=== PATIENT | female | born 1930 | race Hispanic/Latino ===

== ENCOUNTER 2017-09-18 11:54 | Emergency (ER) | payer MEDICARE ==
[2017-09-18 12:09] VITALS: RESP 18; TEMP 97.9; O2SAT 97; BMI 21.9
--- NOTE | 2017-09-18 12:47 | ED PDOC ---
Arrival/HPI - General Chief Complaint: Abnormal Skin Integrity Time Seen by Provider: 09/18/17 12:22 Historian: Patient - History of Present Illness Narrative History of Present Illness (Text): 09/18/17 12:25 Genoveva White is an 87 year old female sent in from a fdc who presents to the emergency department for evaluation today. Patient was diagnosed with MRSA on 09/03/17 to left lateral malleolus and was started on oral medications. However, the oral medications caused the patient to experience nausea and vomiting. Patient states that she stopped taking her medications and her abdomen felt better. Patient's fdc sent her here for evaluation. Patient has no further complaints at this time. Patient endorses that she has never smoked before and does not drink. Symptom Course: Unchanged Activities at Onset: Rest Context: Home Past Medical History - Provider Review Nursing Documentation Reviewed: Yes - Infectious Disease Hx of Infectious Diseases: None - Tetanus Immunization Tetanus Immunization: Unknown - Reproductive Menopause: Yes - Cardiac Hx Hypertension: Yes - Pulmonary Hx Chronic Obstructive Pulmonary Disease (COPD): Yes - Musculoskeletal/Rheumatological Hx Arthritis: Yes Hx Osteoporosis: Yes - Psychiatric Hx Depression: Yes Hx Substance Use: No - Suicidal Assessment Feels Threatened In Home Enviroment: No Family/Social History - Physician Review Nursing Documentation Reviewed: Yes Family/Social History: Unknown Family HX Smoking Status: Never Smoked Hx Alcohol Use: No Hx Substance Use: No Allergies/Home Meds Allergies/Adverse Reactions: Allergies amoxicillin Allergy (Verified 09/18/17 12:14) RASH clarithromycin Allergy (Verified 09/18/17 12:14) RASH codeine Allergy (Verified 09/18/17 12:14) RASH Review of Systems - Physician Review All systems were reviewed & negative as marked: Yes - Review of Systems Constitutional: absent: Fevers, Night Sweats Eyes: absent: Vision Changes ENT: absent: Hearing Changes Respiratory: absent: SOB, Cough Cardiovascular: absent: Chest Pain Gastrointestinal: absent: Abdominal Pain Genitourinary Female: absent: Dysuria, Frequency Musculoskeletal: absent: Arthralgias, Back Pain Skin: absent: Rash, Pruritis Neurological: absent: Headache Endocrine: absent: Diaphoresis Hemo/Lymphatic: absent: Adenopathy Psychiatric: absent: Anxiety, Depression Physical Exam Vital Signs Reviewed: Yes Vital Signs Temp Pulse Resp BP Pulse Ox 09/18/17 15:33 71 18 115/71 97 09/18/17 12:08 97.9 F 76 18 113/79 97 Temperature: Afebrile Blood Pressure: Normal Pulse: Regular Respiratory Rate: Normal - Systems Exam Head: Present: Atraumatic, Normocephalic Pupils: Present: PERRL Extroacular Muscles: Present: EOMI Conjunctiva: Present: Normal Mouth: Present: Moist Mucous Membranes Neck: Present: Normal Range of Motion Respiratory/Chest: Present: Clear to Auscultation, Good Air Exchange. No: Respiratory Distress, Accessory Muscle Use Cardiovascular: Present: Regular Rate and Rhythm, Normal S1, S2. No: Murmurs Abdomen: Present: Normal Bowel Sounds. No: Tenderness, Distention, Peritoneal Signs Back: Present: Normal Inspection Upper Extremity: Present: Normal Inspection. No: Cyanosis, Edema Lower Extremity: Present: Normal Inspection. No: Edema Neurological: Present: GCS=15, CN II-XII Intact, Speech Normal Skin: Present: Other (1cm ulcer to left lateral malleolus with drainage; no erythema; minimal tenderness; no warmth) Psychiatric: Present: Alert, Oriented x 3, Normal Insight, Normal Concentration Medical Decision Making ED Course and Treatment: 09/18/17 12:50 Impression: 87 year old female sent in from a fdc who presents to the emergency department for evaluation today. Patient was diagnosed with MRSA on 09/03/17 to left lateral malleolus. Plan: -- Labs -- Reassess and disposition Progress Notes: 09/18/17 14:37 Patient was on Zyvox but reports that it gave her an upset stomach so she decided not to take it. Discussed in detail with Dr. Boothe. Patient will be discharged back to the fdc on Bactrim. Follow-up in the ER as needed. Work up is unrevealing. - Lab Interpretations Lab Results: 09/18/17 13:57 09/18/17 13:57 Lab Results 09/18/17 13:57: Sodium 138, Potassium 4.5, Chloride 97 L, Carbon Dioxide 31, Anion Gap 14, BUN 39 H, Creatinine 1.2, Est GFR ( Amer) 52, Est GFR (Non- Af Amer) 43, Random Glucose 109, Calcium 10.1, Total Bilirubin 0.5, AST 29, ALT 25, Alkaline Phosphatase 83, Total Protein 8.0, Albumin 3.8, Globulin 4.2, Albumin/Globulin Ratio 0.9 L, Lipase 87 09/18/17 13:57: WBC 9.6, RBC 4.14, Hgb 13.0, Hct 39.4, MCV 95.2, MCH 31.4, MCHC 33.0, RDW 14.1, Plt Count 235, MPV 9.8, Gran % 68.0, Lymph % (Auto) 20.4 L, [place] % (Auto) 7.5 H, Eos % (Auto) 3.9, Baso % (Auto) 0.2, Gran # 6.54 H, Lymph # 2.0, [place] # 0.7 H, Eos # 0.4, Baso # 0.02 I have reviewed the lab results: Yes - Medication Orders Current Medication Orders: Discontinued Medications Tramadol HCl (Ultram) 50 mg PO STAT STA Stop: 09/18/17 15:25 - Scribe Statement The provider has reviewed the documentation as recorded by the Geoff Calderon Provider Scribe Attestation: All medical record entries made by the Jefersonibkirill were at my direction and personally dictated by me. I have reviewed the chart and agree that the record accurately reflects my personal performance of the history, physical exam, medical decision making, and the department course for this patient. I have also personally directed, reviewed, and agree with the discharge instructions and disposition. Disposition/Present on Arrival - Present on Arrival Any Indicators Present on Arrival: No History of DVT/PE: No History of Uncontrolled Diabetes: No Urinary Catheter: No History of Decub. Ulcer: No History Surgical Site Infection Following: None - Disposition Have Diagnosis and Disposition been Completed?: Yes Diagnosis: MRSA (methicillin resistant Staphylococcus aureus) infection, Ankle ulcer Disposition: HOME/ ROUTINE Disposition Time: 14:45 Patient Plan: Discharge Patient Problems: Current Active Problems Problem Status Onset Ankle ulcer Acute MRSA (methicillin resistant Staphylococcus aureus) infection Acute Condition: GOOD Discharge Instructions (ExitCare): MRSA (Methicillin Resistant Staphylococcus Aureus) (ED) Prescriptions: Sulfamethoxazole/Trimethoprim [Bactrim DS 800 mg-160 mg] 1 tab PO BID #20 tab Referrals: Eliseo Boothe DO [Primary Care Provider] - Follow up with primary Forms: [employer] (Albanian)
[2017-09-18 14:08] LABS: BASO # 0.02 K/mm3 (0.0-2.0); BASO % 0.2 % (0.0-3.0); EOS # 0.4 (0.0-0.7); EOS % 3.9 % (1.5-5.0); GRAN # 6.54 (1.4-6.5); LYMPH % 20.4 % (22.0-35.0); MEAN CELL VOLUME 95.2 fl (80.0-105.0); MEAN CORPUSCULAR HEMOGLOBIN 31.4 pg (25.0-35.0); MEAN PLATELET VOLUME 9.8 fl (7.0-11.0); MONO # 0.7 (0.1-0.6); MONO % 7.5 % (1.0-6.0); RBC 4.14 10^6/uL (3.5-6.1); RED CELL DISTRIBUTION WIDTH 14.1 % (11.5-14.5); WHITE BLOOD COUNT 9.6 10^3/ul (4.5-11.0)
[2017-09-18 14:17] LABS: ALB/GLOB RATIO 0.9 (1.1-1.8); ALBUMIN 3.8 g/dL (3.0-4.8); CALCIUM 10.1 mg/dL (8.4-10.5)
[2017-09-18 15:33] VITALS: BP 115/71; PULSE 71
== END 2017-09-18 16:37 | disposition home or self-care (01) ==
LOC: ED 11:54
DX: A49.02 Methicillin resistant Staphylococcus aureus infection, unspecified site (principal); L97.329 Non-pressure chronic ulcer of left ankle with unspecified severity

== ENCOUNTER 2017-09-27 14:49 | Observation (INO) | payer MEDICARE ==
[2017-09-27 15:03] VITALS: BMI 21.4
[2017-09-27] MEDS ORDERED: Iohexol 240 (50 ml) ONE (15:35)
[2017-09-27] MEDS: Sodium Chloride 0.9% 1,000 ML IV STA ×2 (15:41→19:14)
[2017-09-27 15:57] LABS: BASO # 0.01 K/mm3 (0.0-2.0); BASO % 0.2 % (0.0-3.0); EOS # 0.1 (0.0-0.7); EOS % 1.1 % (1.5-5.0); GRAN # 3.65 (1.4-6.5); GRAN % 64.2 % (50.0-68.0); HEMOGLOBIN 12.2 g/dL (12.0-16.0); LYMPH # 1.5 (1.2-3.4); LYMPH % 26.6 % (22.0-35.0); MEAN CELL VOLUME 95.4 fl (80.0-105.0); MEAN CORPUSCULAR HEMOGLOBIN 31.1 pg (25.0-35.0); MEAN CORPUSCULAR HGB CONC 32.6 g/dl (31.0-37.0); MEAN PLATELET VOLUME 10.6 fl (7.0-11.0); MONO # 0.5 (0.1-0.6); MONO % 7.9 % (1.0-6.0); RBC 3.92 10^6/uL (3.5-6.1); RED CELL DISTRIBUTION WIDTH 15.3 % (11.5-14.5); WHITE BLOOD COUNT 5.7 10^3/ul (4.5-11.0)
[2017-09-27] MEDS ORDERED: Iohexol 350 MG/100 ML VIAL ONE (17:29)
[2017-09-27 18:16] LABS: ALBUMIN 3.7 g/dL (3.0-4.8); CALCIUM 10.8 mg/dL (8.4-10.5)
[2017-09-27 18:43] LABS: URINE BILIRUBIN NEGATIVE (NEGATIVE); URINE BLOOD MODERATE (NEGATIVE); URINE GLUCOSE (UA) NEGATIVE (NEGATIVE); URINE LEUKOCYTE ESTERASE MODERATE Leu/uL (NEGATIVE); URINE NITRATE NEGATIVE (NEGATIVE); URINE PROTEIN TRACE mg/dL (<30 mg/dL); URINE UROBILINOGEN 0.2 E.U./dL (<1 E.U./dL)
[2017-09-27 18:47] LABS: URINE APPEARANCE SL CLOUDY (CLEAR); URINE COLOR YELLOW (YELLOW)
[2017-09-27] MEDS ORDERED: Sodium Chloride 0.9% 1,000 ML IV SCH (19:00)
--- NOTE | 2017-09-27 19:20 | ED PDOC ---
Arrival/HPI - General Chief Complaint: GI Problem Time Seen by Provider: 09/27/17 15:31 Historian: Patient - History of Present Illness Narrative History of Present Illness (Text): 09/27/17 15:28 A 87 year old female, whose past medical history includes hypertension, COPD, and osteoporosis, presents to the emergency department complaining of nausea, vomiting, and watery non-bloody diarrhea for 4 days. Patient reports over past 1 or 2 days, whenever she eats she vomits it back out. Starting 6 days ago patient has been taking Bactrum for healed ulcer. Patient denies any fever, or any other complaints. Denies any recent travel or any sick contacts. No PMD Past Medical History - Provider Review Nursing Documentation Reviewed: Yes - Infectious Disease Hx of Infectious Diseases: None - Tetanus Immunization Tetanus Immunization: Unknown - Reproductive Menopause: Yes - Cardiac Hx Hypertension: Yes - Pulmonary Hx Chronic Obstructive Pulmonary Disease (COPD): Yes - Musculoskeletal/Rheumatological Hx Arthritis: Yes Hx Osteoporosis: Yes Other/Comment: mrsa to L foot - Psychiatric Hx Depression: Yes Hx Substance Use: No - Anesthesia Hx Anesthesia Reactions: No Hx Malignant Hyperthermia: No - Suicidal Assessment Feels Threatened In Home Enviroment: No Family/Social History - Physician Review Nursing Documentation Reviewed: Yes Family/Social History: No Known Family HX Smoking Status: Never Smoked Hx Alcohol Use: No Hx Substance Use: No Allergies/Home Meds Allergies/Adverse Reactions: Allergies amoxicillin Allergy (Verified 09/18/17 12:14) RASH clarithromycin Allergy (Verified 09/18/17 12:14) RASH codeine Allergy (Verified 09/18/17 12:14) RASH Home Medications: Home Meds Medication Instructions Recorded Confirmed Carvedilol [Coreg] 25 mg PO BID 09/27/17 09/27/17 Celecoxib [Celebrex] 200 mg PO DAILY 09/27/17 09/27/17 Esomeprazole Magnesium [Nexium] 40 mg PO BID 09/27/17 09/27/17 Fexofenadine HCl [Aller-Fex] 180 mg PO DAILY 09/27/17 09/27/17 Fluticasone Propionate [Flovent 50 mcg TOP DAILY 09/27/17 09/27/17 Diskus] LORazepam [Ativan] 0.5 mg PO BID 09/27/17 09/27/17 amLODIPine [Norvasc] 5 mg PO DAILY 09/27/17 09/27/17 Review of Systems - Physician Review All systems were reviewed & negative as marked: Yes - Review of Systems Constitutional: absent: Fevers Gastrointestinal: Diarrhea (watery and non-bloody), Nausea, Vomiting (vomits back out whatever patient eats) Physical Exam Vital Signs Reviewed: Yes Vital Signs Temp Pulse Resp BP Pulse Ox 09/27/17 18:00 88 18 136/69 96 09/27/17 14:50 97.8 F 96 H 18 128/81 94 L Temperature: Afebrile Blood Pressure: Normal Pulse: Regular Respiratory Rate: Normal Appearance: Positive for: Well-Appearing Pain Distress: None Mental Status: Positive for: Alert and Oriented X 3 - Systems Exam Mouth: Present: Dry Respiratory/Chest: Present: Clear to Auscultation, Good Air Exchange. No: Respiratory Distress, Accessory Muscle Use Cardiovascular: Present: Murmurs (systolic) Abdomen: Present: Normal Bowel Sounds. No: Tenderness, Distention, Peritoneal Signs Lower Extremity: Present: Other (healing left ankle ulcer) Medical Decision Making ED Course and Treatment: 09/27/17 15:31 Impression: 87 year old female with nausea, vomiting, and diarrhea. Physical exam shows mucous membranes dry; systolic murmur; and healing left ankle ulcer. Plan: -- Abd/Pelvis CT -- Labs -- Urine Culture -- Urinalysis -- Zofran -- IV Fluids -- Reassess and disposition Prior Visits: Notes and results from previous visits were reviewed. Patient was last seen in the emergency department on 09/18/2017 for evaluation after being diagnosed with MRSA on 09/03/2017 to left lateral malleolus. Patient was d/c home. Progress Notes: 09/27/2017 20:04 Abd/Pelvis CT FINDINGS: Artifacts: Streak artifact degrades image quality. Lower thorax: Heart is normal. There is a very small pericardial effusion. There are coronary artery calcifications. There is a small hiatal hernia. There is atelectasias and scarring at the lung bases. There is nodular pleural thickening at the lung bases. ABDOMEN: Liver: There is small calcification in the liver. Gallbladder and bile ducts: Gallbladder is absent. Common duct is dilated. Pancreas: Pancreas is atrophic. Spleen: Unremarkable. Adrenals: Unremarkable Kidneys and ureters: There are bilateral renal cysts. There is right renal scarring. There is a tiny non-obstructing left renal stone. Kidneys appear mildly atrophic. There is no pelvocaliectasis or erteractasis. Stomach and bowel: Stomach is empty. Rotation is normal. Proximal small bowel is mildly distendered with fluid and air. There is contrast in the distal small bowel. There is no small bowel obstruction. Illececal region is unremarkable. Appendix and terminal ileum are unremarkable. Colon is incompletely distended which limits evaluation. There is diverticulosis. Appendix: See stomach and bowel. PELVIS: Bladder: Bladder is partially distended. Reproductive: Uterus and adnexal structures are unremarkable. There is a pessary. ABDOMEN AND PELVIS: Intraperitoneal space: There is no free air or free fluid. Bones/joints: There are old healed rib fractures. Bony structures are osteopenic with degenerative change. There is a convex right lumbar curve. There is compression fracture at T-12. Soft tissues: There is a small lipoma in the soft tissues at the left hip. There is a very small fat containing umbilical hernia. Vasculature: There are vascular calcifications. Aorta is mildly ectatic. Lymph nodes: is shotty adenopathy. IMPRESSION: Dilated common duct status post cholecystectomy; no acute solid visceral abdnormality; possible mild ileus, no obstruction; no CT findings of appendicitis or diverticulitis. Additional nonemergent findings as described above. Dictator: Valerie Najera MD - Lab Interpretations Lab Results: 09/27/17 15:30 09/27/17 15:30 Lab Results 09/27/17 18:20: Urine Color Yellow, Urine Appearance Sl cloudy, Urine pH 6.0, Ur Specific [place] 1.025, Urine Protein Trace H, Urine Glucose (UA) Negative, Urine Ketones Negative, Urine Blood Moderate H, Urine Nitrate Negative, Urine Bilirubin Negative, Urine Urobilinogen 0.2, Ur Leukocyte Esterase Moderate H, Urine RBC 2 - 5, Urine WBC 10 - 15, Ur Epithelial Cells 4 - 5, Urine Bacteria Mod 09/27/17 15:30: Sodium 143, Potassium 4.4, Chloride 106, Carbon Dioxide 26, Anion Gap 16, BUN 72 H, Creatinine 2.7 H, Est GFR ( Amer) 20, Est GFR ( Non-Af Amer) 17, Random Glucose 115 H, Calcium 10.8 H, Total Bilirubin 0.5, AST 60 H D, ALT 39, Alkaline Phosphatase 72, Total Protein 7.5, Albumin 3.7, Globulin 3.8, Albumin/Globulin Ratio 1.0 L, Lipase 61 09/27/17 15:30: WBC 5.7 D, RBC 3.92, Hgb 12.2, Hct 37.4, MCV 95.4, MCH 31.1, MCHC 32.6, RDW 15.3 H, Plt Count 199, MPV 10.6, Gran % 64.2, Lymph % (Auto) 26.6 , [place] % (Auto) 7.9 H, Eos % (Auto) 1.1 L, Baso % (Auto) 0.2, Gran # 3.65, Lymph # 1.5, [place] # 0.5, Eos # 0.1, Baso # 0.01 I have reviewed the lab results: Yes - RAD Interpretation Radiology Orders: 09/27/17 18:22 ABD & PELVIS PO CONTRAST ONLY [CT] Stat - Medication Orders Current Medication Orders: Sodium Chloride (Sodium Chloride 0.9%) 1,000 mls @ 100 mls/hr IV .Q10H STA Stop: 09/28/17 01:30 Last Admin: 09/27/17 19:14 Dose: 100 mls/hr eMAR Start Stop Document 09/27/17 19:14 SRE (Rec: 09/27/17 19:14 SRE [id number]) Intravenous Solution Start Date 09/27/17 Start Time 19:14 Sodium Chloride (Sodium Chloride 0.9%) 1,000 mls @ 125 mls/hr IV .Q8H [facility] Last Admin: 09/27/17 19:36 Dose: 125 mls/hr eMAR Start Stop Document 09/27/17 19:36 CNR (Rec: 09/27/17 19:37 CNR [id number] Intravenous Solution Start Date 09/27/17 Start Time 19:37 Sodium Chloride (Sodium Chloride 0.45%) 1,000 mls @ 60 mls/hr IV .[id number] ONE Stop: 09/28/17 13:10 Discontinued Medications Ciprofloxacin (Cipro 400mg/200ml Dsw) 400 mg in 200 mls @ 133.3 mls/hr IVPB STAT STA PRN Reason: Protocol Stop: 09/27/17 22:03 Last Admin: 09/27/17 21:05 Dose: 133.3 mls/hr eMAR Start Stop Document 09/27/17 21:05 CNR (Rec: 09/27/17 21:[address] [facility] [id number]) Intravenous Solution Start Date 09/27/17 Start Time 21:05 Ondansetron HCl (Zofran Inj) 4 mg IVP STAT STA Stop: 09/27/17 16:15 Last Admin: 09/27/17 16:18 Dose: 4 mg IVP Administration Document 09/27/17 16:18 SRE (Rec: 09/27/17 16:18 SRE [id number]) Charges for Administration # of IVP Administrations 1 - Scribe Statement The provider has reviewed the documentation as recorded by the Geoff Mejia Provider Scribe Attestation: All medical record entries made by the Scribe were at my direction and personally dictated by me. I have reviewed the chart and agree that the record accurately reflects my personal performance of the history, physical exam, medical decision making, and the department course for this patient. I have also personally directed, reviewed, and agree with the discharge instructions and disposition. Disposition/Present on Arrival - Present on Arrival Any Indicators Present on Arrival: No History of DVT/PE: No History of Uncontrolled Diabetes: No Urinary Catheter: No History of Decub. Ulcer: No History Surgical Site Infection Following: None - Disposition Have Diagnosis and Disposition been Completed?: Yes Diagnosis: Dehydration, Acute renal failure, UTI (urinary tract infection) Disposition: HOSPITALIZED Disposition Time: 19:00 Condition: STABLE
[2017-09-27 19:34] LABS: URINE BACTERIA MOD (NEG)
--- NOTE | 2017-09-27 20:04 | CT ---
EXAM: CT Abdomen and Pelvis Without Intravenous Contrast EXAM DATE/TIME: 09/27/2017 6:22 PM CLINICAL HISTORY: 87 years old, female; Pain; Abdominal pain; Localized; Lower; Additional info: Diffuse tenderness- multiple vomiting TECHNIQUE: Axial computed tomography images of the abdomen and pelvis without intravenous contrast. All CT scans at this facility use one or more dose reduction techniques, viz.: automated exposure control; ma/kV adjustment per patient size (including targeted exams where dose is matched to indication; i.e. head); or iterative reconstruction technique. Coronal and sagittal reformatted images were created and reviewed. COMPARISON: There are no prior studies for comparison. FINDINGS: Artifacts: Streak artifact degrades image quality. Lower thorax: Heart size is normal. There is a very small pericardial effusion. There are coronary artery calcifications. There is a small hiatal hernia. There is atelectasis and scarring at the lung bases. There is nodular pleural thickening at the lung bases. ABDOMEN: Liver: There is a small calcification in the liver. Gallbladder and bile ducts: Gallbladder is absent. Common duct is dilated. Pancreas: Pancreas is atrophic. Spleen: unremarkable Adrenals: unremarkable Kidneys and ureters: There are bilateral renal cysts. There is right renal scarring. There is a tiny nonobstructing left renal stone. Kidneys appear mildly atrophic.There is no pelvocaliectasis or ureterectasis. Stomach and bowel: Stomach is empty. Rotation is normal. Proximal small bowel is mildly distended with fluid and air. There is contrast in the distal small bowel. There is no small bowel obstruction. Ileocecal region is unremarkable. Appendix and terminal ileum are unremarkable. Colon is incompletely distended which limits evaluation.There is diverticulosis. Appendix: See stomach and bowel PELVIS: Bladder: Bladder is partially distended. Reproductive: Uterus and adnexal structures are unremarkable. There is a pessary. ABDOMEN and PELVIS: Intraperitoneal space: There is no free air or free fluid. Bones/joints: There are old healed rib fractures Bony structures are osteopenic with degenerative change. There is a convex right lumbar curve. There is compression fracture at T12. Soft tissues: There is a small lipoma in the soft tissues at the left hip. There is a very small fat containing umbilical hernia. Vasculature: There are vascular calcifications. Aorta is mildly ectatic Lymph nodes: is shotty adenopathy. IMPRESSION: Dilated common duct status post cholecystectomy; no acute solid visceral abnormality; possible mild ileus, no obstruction; no CT findings of appendicitis or diverticulitis Additional nonemergent findings as described above.
[2017-09-27] MEDS ORDERED: Sodium Chloride 0.45% 1,000 ML IV ONE (20:31)
[2017-09-27] MEDS ORDERED: Ciprofloxacin 400mg/200ml D5W 400 MG/200 ML BAG IVPB STA (20:33)
[2017-09-28 03:05] VITALS: PULSE 87; RESP 20
[2017-09-28 09:02] VITALS: BP 136/85; TEMP 97.8; O2SAT 94
[2017-09-28 09:26] LABS: ALB/GLOB RATIO 0.9 (1.1-1.8); ALBUMIN 3.2 g/dL (3.0-4.8); CALCIUM 9.9 mg/dL (8.4-10.5); MAGNESIUM 1.6 mg/dL (1.7-2.2)
[2017-09-28 09:28] LABS: HEMOGLOBIN 11.4 g/dL (12.0-16.0); MEAN CELL VOLUME 98.4 fl (80.0-105.0); MEAN CORPUSCULAR HGB CONC 31.5 g/dl (31.0-37.0); MEAN PLATELET VOLUME 10.5 fl (7.0-11.0); RBC 3.68 10^6/uL (3.5-6.1); RED CELL DISTRIBUTION WIDTH 15.1 % (11.5-14.5); WHITE BLOOD COUNT 6.8 10^3/ul (4.5-11.0)
[2017-09-28] MEDS ORDERED: Ciprofloxacin 400mg/200ml D5W 400 MG/200 ML BAG IVPB SCH (10:00)
--- NOTE | 2017-09-28 15:11 | CP.PCM.CON ---
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 Hypertension control with meds as ordered. Patient not on ACEI/ARB due to [facility] Monitor Input/Output, daily weights and renal function with basic metabolic panel renal function improved with IVF pt planned for d/c home today. stable from renal perspective with outpt renal follow up in 1-2 weeks supplement electrolytes as needed Dose meds/antibiotics for reduced GFR. Avoid fleets enema/magnesium based laxatives. Avoid nephrotoxins/NSAIDs/ iodinated contrast (unless needed emergently) Glycemic control Further work up/management as per primary team Thanks for allowing me to participate in care of your patient. Will follow patient with you. Please call if any Qs. d/w team Dr John Zimmerman Office: [phone] Chief Complaint; loose stool reason for consult: [facility] HPI: Pt is a 87 F with hx of hypertension (years), COPD presented with complaints of multiple episodes of loose stool over last few days with decreased oral intake. she was taking bactrim for last 1 week for ankle skin infection renal consult for [facility]. she also has baseline ckd with cr 1.2 Denies OTC/herbal meds or NSAIDs No recent iodinated contrast exposure. No obvious episodes of low BP. ROS: Cardiovascular: No chest pain. Pulmonary: No shortness of breath Gastrointestinal: denies abdominal pain No nausea. No vomiting. no diarrhoea now Genitourinary: No pain while urinating. Denies blood in urine. All other negative Physical Examination: General Appearance: Comfortable, in no acute respiratory distress, co-operative . Vitals reviewed and noted as below Head; Atraumatic, normocephalic ENT: no ulcers no thrush. Tongue is midline. Oropharynx: no rash or ulcers. EYES: Pupils are equal, round and reactive to light accommodation. Eye muscles and extraocular movement intact. Sclera is anicteric. Neck; supple no lymphadenopathy, no thyromegaly or bruit Lungs: Normal respiratory rate/effort. Breath sounds bilateral equal and clear Heart: Normal rate. s1s2 normal. No rub or gallop. Extremities: no edema. No varicose veins Neurological: Patient is alert, awake and oriented to person, place and time. No focal deficit. Strength bilateral appropriate and equal Skin: Warm and dry. Normal turgor. No rash. Palpitation: Normal elasticity for age Abdomen: Abdomen is soft. Bowel sounds +. There is no abdominal tenderness, no guarding/rigidity no organomegaly Psych: normal insight and normal affect/mood MSK: no joint tenderness or swelling. Digits and nails normal, no deformity : kidney or bladder not palpable Labs/imaging reviewed. Past medical history, past surgical history, family history, social history, allergy reviewed and noted as below Family hx: no hx of CKD. Rest non-contributory renal: b/l atrophy and cysts Past Patient History - Infectious Disease Hx of Infectious Diseases: None - Tetanus Immunizations Tetanus Immunization: Unknown - Past Social History Smoking Status: Never Smoked - CARDIAC Hx Hypertension: Yes - PULMONARY Hx Chronic Obstructive Pulmonary Disease (COPD): Yes - MUSCULOSKELETAL/RHEUMATOLOGICAL Hx Falls: No - PSYCHIATRIC Hx Depression: Yes Hx Substance Use: No - SURGICAL HISTORY Hx Cholecystectomy: Yes - ANESTHESIA Hx Anesthesia Reactions: No Hx Malignant Hyperthermia: No Meds Home Medications: Home Medication List Medication Instructions Recorded Confirmed Type Ciprofloxacin [Cipro] 500 mg PO Q12 #14 tab 09/28/17 Rx Allergies/Adverse Reactions: Allergies Allergy/AdvReac Type Severity Reaction Status Date / Time amoxicillin Allergy RASH Verified 09/18/17 12:14 clarithromycin Allergy RASH Verified 09/18/17 12:14 codeine Allergy RASH Verified 09/18/17 12:14 Results - Vital Signs Recent Vital Signs: Last Vital Signs Temp 97.8 F 09/28/17 08:00 Pulse 87 09/28/17 10:13 Resp 20 09/28/17 08:00 BP 136/85 09/28/17 10:13 Pulse Ox 94 L 09/28/17 08:00 - Labs Result Diagrams: 09/28/17 08:30 09/28/17 08:55 Labs: Laboratory Results - last 24 hr 09/28/17 09/28/17 08:30 08:55 WBC 6.8 RBC 3.68 Hgb 11.4 L Hct 36.2 MCV 98.4 D MCH 31.0 MCHC 31.5 RDW 15.1 H Plt Count 172 MPV 10.5 Sodium 142 Potassium 3.8 Chloride 109 H Carbon Dioxide 24 Anion Gap 13 BUN 41 H Creatinine 1.4 H Est GFR ( Amer) 43 Est GFR (Non-Af Amer) 36 Random Glucose 84 Calcium 9.9 Magnesium 1.6 L Total Bilirubin 0.8 AST 50 H ALT 39 Alkaline Phosphatase 57 Total Protein 6.7 Albumin 3.2 Globulin 3.5 Albumin/Globulin Ratio 0.9 L
--- NOTE | 2017-09-29 02:46 | DS ---
HISTORY OF PRESENT ILLNESS: She is resting comfortably in bed. She is doing better. No more diarrhea. She is in good spirit. She wants to go back to the PHYSICAL EXAMINATION: VITAL SIGNS: Temperature 97.8, 87 pulse , 136/85 blood pressure, 20 respiratory rate, and 94% O2 sat on room air. HEENT: Head is atraumatic and normocephalic. CARDIOVASCULAR: Heart is regular rate. LUNGS: Clear to auscultation. ABDOMEN: Abdomen is soft. EXTREMITIES: No edema. MEDICATIONS: She is going to go home on Ativan, Cipro p.o., Coreg, and Norvasc. LABORATORY DATA: She has labs from this morning that are better. White count 6.8, 11.4 hemoglobin, and 36.2 hematocrit, with 172 platelets. She has 142 sodium, potassium is 3.8, BUN is better at 41, creatinine is better at 1.4, GFR is 36, sugar is 84, calcium is 9.9, magnesium is 1.6, total bilirubin is 0.8, AST is 50, ALT is 39, and alkaline phosphate is 57. ASSESSMENT AND PLAN: She improved greatly. She had UTI. She had dehydration and acute kidney injury. Diarrhea is better. She wants to go home. She will be on Cipro. Eliseo Boothe DO MTDD
--- NOTE | 2017-09-29 08:25 | PN ---
DATE: 09/28/2017 SUBJECTIVE: I was treating her at [facility] for the past 4 days for UTI on Bactrim, increasing her fluids and talking to the nurse there. Finally she eventually agreed to come to the emergency room. She is here in observation. She came in because she is an 87-year-old female with nausea, vomiting, watery, nonbloody diarrhea, also UTI. There is a past medical history of hypertension, COPD, osteoporosis. No known family history. Never smoked or drugs. No alcohol. ALLERGIES: SHE HAS ALLERGIES TO PENICILLIN, AMOXICILLIN, ERYTHROMYCIN, CODEINE. MEDICATIONS: She takes Coreg for the heart CHF, Celebrex, Nexium, Soila, Flovent for COPD and amlodipine for hypertension. REVIEW OF SYSTEMS: No acute vision or hearing changes at all. No sore throat. No chest pain or palpitations or shortness of breath or cough. There is some abdominal discomfort. There is watery diarrhea, nonbloody. We have been checking stool for C. Diff, now she has no diarrhea. PHYSICAL EXAMINATION: SKIN: Intact. VITAL SIGNS: She has 97.8 temperature, 88 pulse, 18 respiratory rate, 136/69 blood pressure, 96% sat on room air. GENERAL: She is well appearing, comfortable and oriented x3. She has had no bowel movement. She is feeling better. She wants to go home, we might just do that. HEENT: Head is atraumatic, normocephalic. Throat is moist. NECK: Supple. HEART: Regular rate and rhythm with decreased breath sounds but clear to auscultation. ABDOMEN: Soft, nontender. Positive bowel sounds. EXTREMITIES: Have no edema, left healing ankle ulcer. NEUROLOGIC: Cranial nerves II through XII grossly intact. She is comfortable at this time. No diarrhea. LABORATORY DATA: She had a urine which showed moderate leukocytes, moderate bacteria. She is on Cipro IV. Sodium 143, potassium 4.4, BUN 72, creatinine 2.7 and so dehydration could be from the diarrhea and not able to eat and drink well. She is on IV fluids. GFR is 17, sugar is 117, calcium is 7.8, AST is 60, ALT is 39, alk phos 72, total protein 7.5, lipase is 61. White count 5.7, hemoglobin 12.2, hematocrit 37.4, platelets are 199. She had a CT scan of the abdomen and pelvis that showed dilated common duct status post cholecystectomy. IMPRESSION: No acute possible mild ileus, no obstruction. She was consulted with Renal. She is on IV fluids and waiting for labs to come back, we will check her labs. She will be on Cipro. If possible, I would put her back to [facility] with increase in fluids and Cipro antibiotic if the labs are improved this morning, we will wait and see. She is here for diarrhea, acute kidney injury, dehydration, UTI, failed outpatient therapy. Eliseo Boothe DO MTDD
== END 2017-09-28 13:33 | disposition home or self-care (01) ==
LOC: ED 14:49 → ERH 20:34 → 5RSO 09-28 01:56
PROVIDERS: ADMIT Family Medicine; ATTEND Family Medicine
DX: N17.9 Acute kidney failure, unspecified (principal); E86.0 Dehydration; N39.0 Urinary tract infection, site not specified; R19.7 Diarrhea, unspecified; I12.9 Hypertensive chronic kidney disease with stage 1 through stage 4 chronic kidney disease, or unspecified chronic kidney disease; N18.3 Chronic kidney disease, stage 3 (moderate); J44.9 Chronic obstructive pulmonary disease, unspecified; E83.52 Hypercalcemia; N28.1 Cyst of kidney, acquired; F32.9 Major depressive disorder, single episode, unspecified; E83.42 Hypomagnesemia; D64.9 Anemia, unspecified; M81.0 Age-related osteoporosis without current pathological fracture; Z88.0 Allergy status to penicillin; Z88.1 Allergy status to other antibiotic agents
CPT/HCPCS: 36415; 74176; 80053; 81001; 83690; 83735; 85025; 85027; 87086; 96365; 96375; 99285; G0378; J0744; J2405; J7030; J7040; Q9966